=== PATIENT | male | born 1970 | race Caucasian/White ===

== ENCOUNTER → 2020-09-30 | Outpatient (CLI) | payer OTHER ==
[2020-09-30 08:03] LABS: HEMOGLOBIN 17.9 gm/dl (14.0-17.5); RED BLOOD COUNT 5.56 M/UL (4.20-5.50); WHITE BLOOD COUNT 8.1 K/UL (4.5-11.0)
[2020-09-30 08:33] LABS: BUN/CREATININE RATIO 15 (0-10)
[2020-10-01 10:10] LABS: VITAMIN D, 25-HYDROXY 26.5 ng/mL (30.0-100.0)
== END ==
LOC: LAB 07:16
PROVIDERS: Nurse Practitioner Family
DX: R39.11 Hesitancy of micturition (principal); R53.83 Other fatigue
CPT/HCPCS: 36415; 80053; 80061; 84153; 84436; 84443; 84480; 85025